=== PATIENT | male | born 1995 | race Caucasian/White ===

== ENCOUNTER 2016-08-18 02:44 | Emergency (ER) | payer SELFPAY ==
[~2016-08-18] VITALS: Ht 175.3 cm; Wt 74.8 kg
[2016-08-18 03:25] VITALS: BP 136/84
== END 2016-08-18 03:25 | disposition home or self-care (01) ==
LOC: ED 02:44
DX: S01.01XA Laceration without foreign body of scalp, initial encounter (principal); W18.30XA Fall on same level, unspecified, initial encounter; Y93.E1 Activity, personal bathing and showering; Y99.8 Other external cause status; Y92.002 Bathroom of unspecified non-institutional (private) residence as the place of occurrence of the external cause